=== PATIENT | male | born 1995 | race Hispanic/Latino ===

== ENCOUNTER 2024-07-16 08:50 | Emergency (ER) | payer BC ==
[~2024-07-16] VITALS: Ht 182.9 cm; Wt 98.0 kg
[2024-07-16] MEDS ORDERED: CYCLOBENZAPRINE HCL 10 MG TABLET PO ONE (09:30)
[2024-07-16 09:43] LABS: BILIRUBIN,URINE MODERATE mg/dL (NEGATIVE); GLUCOSE, URINE (UA) 100 mg/dL (NEGATIVE); KETONES,URINE 15 mg/dL (NEGATIVE); LEUKOCYTE ESTERASE ,URINE SMALL Leu/uL (NEGATIVE); NITRATE,URINE POSITIVE (NEGATIVE); OCCULT BLOOD,URINE LARGE (NEGATIVE); PH,URINE 6.5 (5.0-8.0); PROTEIN,URINE >=300 mg/dL (NEGATIVE)
[2024-07-16 09:51] LABS: ADD UA MICROSCOPIC YES; APPEARANCE,URINE CLOUDY (CLEAR); COLOR,URINE BROWN (YELLOW)
[2024-07-16] MEDS: IBUPROFEN 600 MG TABLET PO ONE (10:02)
[2024-07-16 10:06] LABS: RBC,URINE TNTC /HPF (0-1)
[2024-07-16 10:07] LABS: BACTERIA,URINE Moderate /HPF (None Seen); MUCUS,URINE Few LPF (None Seen); SQUAMOUS EPITHELIAL CELL,UR Rare /HPF (0-2)
[2024-07-16 10:13] LABS: BASOPHILS # (AUTO) 0.06 K/uL (0.00-0.20); BASOPHILS % (AUTO) 0.4 % (0.0-5.0); EOSINOPHILS # (AUTO) 0.01 K/uL (0.00-0.70); EOSINOPHILS % (AUTO) 0.1 % (0.0-8.0); HEMATOCRIT 49.7 % (42-54); IMMATURE GRANULOCYTE ABSOLUTE 0.08 K/uL (0-1); LYMPHOCYTES # (AUTO) 1.5 K/uL (1.0-4.8); LYMPHOCYTES % (AUTO) 10.5 % (21.0-51.0); MEAN CORPUSCULAR HEMOGLOBIN 30.3 pg (27.0-33.0); MEAN CORPUSCULAR HGB CONC 35.4 g/dL (32.0-36.0); MEAN CORPUSCULAR VOLUME 85.7 fL (79-99); MONOCYTES # (AUTO) 0.5 K/uL (0.1-1.0); MONOCYTES % (AUTO) 3.5 % (3.0-13.0); NEUTROPHILS # (AUTO) 11.9 K/uL (1.8-7.7); NEUTROPHILS % (AUTO) 84.9 % (40.0-77.0); PLATELET COUNT (AUTO) 312 K/uL (130-400); RED CELL DISTRIBUTION WIDTH 12.2 % (11.0-15.5)
[2024-07-16 10:28] LABS: CREATININE 1.3 mg/dL (0.5-1.3); POTASSIUM 4.8 mmol/L (3.5-5.1)
[2024-07-16] MEDS ORDERED: cefTRIAXone 1G VIAL IVPB ONE (10:30)
[2024-07-16] MEDS ORDERED: MORPHINE 2 MG SYG IVP ONE (10:30)
[2024-07-16] MEDS: cefTRIAXone 1G VIAL IM ONE (11:10)
[2024-07-16] MEDS: tamSULOsin HCL 0.4 MG CAP.ER.24H PO ONE (11:10)
[2024-07-16] MEDS: MORPHINE 2 MG SYG IM ONE (11:11)
[2024-07-16] MEDS ORDERED: IBUP-2070 PO (12:11)
[2024-07-16] MEDS ORDERED: TAMS-1 PO (12:11)
[2024-07-16] MEDS ORDERED: CEPH500B PO (12:11)
[2024-07-16] MEDS ORDERED: ONDA-243 PO (12:11)
[2024-07-16 12:32] VITALS: BP 143/74; PULSE 72; RESP 18; O2SAT 98
== END 2024-07-16 12:37 | disposition home or self-care (01) ==
LOC: EDH 08:50
DX: N39.0 Urinary tract infection, site not specified (principal); N20.0 Calculus of kidney; R31.9 Hematuria, unspecified; Z79.899 Other long term (current) drug therapy
CPT/HCPCS: 99284; 74176; 80048; 85025; 87086; 81001; 36415; 96372 ×2; J2270; J0696